=== PATIENT | male | born 1980 | race Caucasian/White ===

== ENCOUNTER 2019-09-03 00:21 | Emergency (ER) | payer OTHER, MEDICARE ==
[~2019-09-03] VITALS: Ht 182.9 cm; Wt 104.3 kg
[~2019-09-03 00:21] MED LIST: AMOX500 PO; ANTI-DEPRESSANT; CYCL10 PO; DIAZ10 PO; HYDACE5 PO; IBUP800 PO; METPRE4DP PO; NAPR500 PO; OXYACE5T PO; PRED20 PO; PSEU120ER PO; RXTRAM50 PO; TRAM50 PO
[2019-09-03] MEDS ORDERED: VENL150ER PO (00:44)
[2019-09-03] MEDS ORDERED: ALLO100 PO (01:54)
[2019-09-03] MEDS ORDERED: Indomethacin50 MG PO (01:54)
== END 2019-09-03 02:13 | disposition home or self-care (01) ==
LOC: ER 00:21
DX: M10.9 Gout, unspecified (principal); Z79.899 Other long term (current) drug therapy; I10 Essential (primary) hypertension; Z87.891 Personal history of nicotine dependence
CPT/HCPCS: 73630; 99283-25; A9270; A9270-GY